=== PATIENT | female | born 1965 | race Caucasian/White ===

== ENCOUNTER → 2020-06-21 | Day surgery (SDC) | payer OTHER ==
[2020-06-18 12:46] LABS: BASOPHILS # (AUTO) 0.1 (0.0-0.1); BASOPHILS % 0.9 % (0.0-1.0); EOSINOPHILS # (AUTO) 0.1 (0.0-0.4); EOSINOPHILS % 1.2 % (0.0-6.0); HEMATOCRIT 36.5 % (34.2-44.1); HEMOGLOBIN 10.9 g/dL (12.0-16.0); LYMPHOCYTES # (AUTO) 2.2 (1.0-3.2); MEAN CORPUSCULAR HEMOGLOBIN 24.2 pg (28-32); MEAN CORPUSCULAR HGB CONC 29.9 g/dL (31-35); MEAN CORPUSCULAR VOLUME 81.1 fL (81-99); MONOCYTES # (AUTO) 0.4 (0.2-0.8); MONOCYTES % 7.2 % (4.4-11.3); NEUTROPHILS # (AUTO) 3.1 (2.1-6.9); NEUTROPHILS % 53.5 % (38.7-80.0); PLATELET COUNT 300 x10e3/uL (140-360); RED CELL DISTRIBUTION WIDTH 14.8 % (11.7-14.4)
--- NOTE | 2020-06-18 13:10 | Diagnostic Imaging Report ---
Exam: CHEST 2 VIEWS Date: 06/18/2020 1:06 PM INDICATION: ^[id number] ^1230 ^PRE OP Comparison: None FINDINGS: Lines/Tubes:None Lungs:The lungs are well inflated. No focal consolidation or pulmonary edema. Pleura:No pleural effusion. No pneumothorax. Heart/Mediastinum:The cardiomediastinal silhouette is normal in size and contour. Bones/Soft Tissues: No acute osseous abnormality. Mild multilevel degenerative changes of the spine are noted. Upper abdomen: Unremarkable. IMPRESSION: Negative for acute intrathoracic process. Signed by: Rafa Khan MD on 06/18/2020 1:06 PM
[~2020-06-21] MED LIST: BOTULINUM TOXIN TYPE A 100 UNIT VIAL IM ONE; CEFTRIAXONE SOD 1 GM/NS 50 ML 50 ML IV ONE; DEXAMETHASONE SOD PHOS INJ 4 MG/ML VIAL ONE; HORMONE PELLETS; LIDOCAINE HCL 2% LOCAL INJ 5 ML SDV VIAL INJ ONE; ONDANSETRON HCL INJ 2MG/ML 2ML 2 MG/ML VIAL ONE; PROGESTERONE200 MG PO; PROPOFOL IV EMULSION 10 MG/ML 20 ML VIAL ONE; SEVOFLURANE INHAL SOLN 250 ML PEN BTL ONE
[2020-06-21 08:20] VITALS: BP 108/63
--- NOTE | 2020-06-27 03:03 | Operative Report ---
DATE OF PROCEDURE: 06/21/2020 SURGEON: Sabino Ballard MD PREOPERATIVE DIAGNOSIS: Urge urinary incontinence. POSTOPERATIVE DIAGNOSIS: Urge urinary incontinence. OPERATIVE PROCEDURE PERFORMED: Cystoscopy and intramuscular injection of Botox. ANESTHESIA: General. ESTIMATED BLOOD LOSS: Minimal. INDICATIONS: Ms. Tracie Blanco is a 54-year-old woman with a history of intractable urge incontinence, which has failed management with oral medications. She now presents for surgical management of this problem. PROCEDURE IN DETAIL: The patient was brought to the operating room, placed in supine position and after administration of general anesthesia, she was placed in the dorsal lithotomy position and prepped and draped in the usual sterile fashion. Cystourethroscopy was performed using a 21-Hungarian cystoscope. The anterior and posterior urethra were noted to be normal. The bladder was entered without difficulty. Upon entrance into the bladder, the ureteral orifices were in a normal anatomical position and produced largely clear efflux. The bladder wall was noted to be muscular. There were grade 1-2 trabeculations noted throughout. There were no mucosal lesions identified. Using the Botox needle, 20 separate injections were made into the mucosa and each was infiltrated with approximately 0.5 mL of Botox. The Botox was 100 units diluted in a total of 9.2 mL of fluid. 15 of these were over the posterior wall and dome from the right to the left ureteral orifice. The remaining five injections were made in the mid dome, both lateral araya and the trigone. There was minimal bleeding noted at the conclusion of the procedure. The bladder was then drained in its entirety and the cystoscope and sheath were removed. The patient was returned to supine position. Anesthesia was reversed. She was transferred to a bed and taken to the postanesthesia care unit in good condition. Of note, the needle and instrument count were correct at the conclusion of the case. MD GAGE Webb/TEJAL /[id number]
== END | disposition home or self-care (01) ==
LOC: OR 05:27
PROVIDERS: ATTEND Urology
DX: N39.41 Urge incontinence (principal); N32.81 Overactive bladder; N32.89 Other specified disorders of bladder; Z86.2 Personal history of diseases of the blood and blood-forming organs and certain disorders involving the immune mechanism
CPT/HCPCS: 36415; 52287; 71046; 85025; 93005; J0587; J0696; J1100; J2001; J2405; J2704; U0002